=== PATIENT | female | born 1945 | race Caucasian/White ===

== ENCOUNTER 2018-04-04 17:08 | Inpatient (IN) ==
[2018-04-04] MEDS ORDERED: Naloxone 0.4 MG/ML INJ IVP PRN (19:53)
--- NOTE | 2018-04-04 21:03 | Internal Med History&Physical ---
<Giles Bradley - Last Filed: 04/04/18 23:05> Date of Encounter: 04/04/18 Time of Encounter: 20:30 Internal Medicine - H&P: HPI Chief complaint: Recurring Falls Admitted From: Hospital to Hospital Transfer Plans for Post Hospital Care: Home History of present illness: Ms. Doe is a 72 year old female past medical history hypertension, CHF, A. fib with pacer/defibrillator and currently on Plavix, bilateral "breast surgery ", bilateral tubal ligation, presents as transferred from [facility] for anemia requiring multiple transfusions, falls. Patient was getting up from her bed to go to the kitchen when she fell forward this morning. She reports that she has been feeling shaky for the last 2 days. Denied loss of consciousness immediately prior or after the fall. She denies lightheadedness, headaches, blurry vision. Replies that she is compliant with all her medications. Patient' s first fall was in 2009 and reports that she has fallen over 20 times since then. She does not use a walker at home and was recently started on Plavix due to cardiac stent. Reports that she has been easily bruised since starting on the Plavix. Denies chest pain, shortness of breath, coughing, sick contacts, f/ c/n/v/diarrhea. Denies hematuria, dysuria, melena, hematochezia. She reports that she received to blood transfusion units at [facility], previous last infusion was back in 2017. Denies noticing bleeding anywhere. Social history: Denies smoking, alcohol, illicit drug use. Patient lives by herself on her apartment and receives daily home health. Family history: Both parents with history of CAD Allergies: Codeine Medications: Statin, carvedilol, diazepam, flucoticasone, folic acid, furosemide , levothyroxine, lisinopril, plavix. Labs: WBC 10.4, RBC 1.89, hemoglobin 6.6, hematocrit 19.5, MCV 103.2, platelet 210, absolute neutrophils 8.8 Sodium 127, potassium 2.4, chloride 89, enzymatic CO2 24, BNP 56, glucose 120, creatinine 3.68, calcium 8.6, total protein 6.2, albumin 2.6 Total bilirubin 1.0, alkaline phosphatase 129, AST 58, ALT 22, GFR 14.72 Troponin<0.056 TSH 1.613, free T4 0.88 UA positive blood, positive leukocyte esterase, negative nitrites Occult blood negative Vital signs immediately prior to transfusion VSS, 2 units were given at [address] head without contrast: No bleed, positive mass effect, focal parenchymal lesion identified. Overall normal CT scan of the head Past Med Surg Social Fam HX - Past Medical History Medical history: CHF, hypertension Psychiatric history: anxiety, depression - Past Surgical History Surgical History: breast surgery, pacemaker/AICD Additional surgical history: breast cancer with breast surgery (2004) - Social History Smoking Status: Never smoker Smokeless Tobacco Status: No Alcohol use: rarely Drug use: none Internal Medicine - H&P: Meds 3 Allergy/AdvReac Type Severity Reaction Status Date / Time codeine Allergy Unknown Verified 04/04/18 23:35 All Systems PM: A 10-system review of systems was performed and is negative for pertinent findings except as documented above in the HPI. Review of systems: Patient reports constant falls when she gets up to walk. No walker at home. No aids. Patient started plavix a few months ago due to A. fib and received a pacemaker. - Constitutional Constitutional: no chills, no fever(s), no night sweats - EENT Eyes: no change in vision, no discharge, no pain, no photophobia Ears: no ear discharge, no ear pain, no tinnitus Nose, mouth and throat: no dysphagia, no nasal discharge, no neck pain, no sore throat - Cardiovascular Cardiovascular ROS IM: no chest pain, no diaphoresis, no dyspnea, no lightheadedness, no palpitations, no syncope - Respiratory Respiratory: no cough, no dyspnea, no wheezing, no excessive phlegm production - Gastrointestinal Gastrointestinal: no abdominal pain, no diarrhea, no hematemesis, no hematochezia, no melena, no nausea, no vomiting - Genitourinary Genitourinary: no change in urinary stream, no dysuria, no flank pain, no hematuria - Musculoskeletal Musculoskeletal ROS IM: no numbness, no tingling - Integumentary Integumentary IM: no rash, no unusual bruising - Neurological Neurological ROS: no confusion, no convulsions, no focal weakness, no numbness, no tingling, no tremor(s) - Hematologic/Lymphatic Hematologic/Lymphatic: no easy bruising - Constitutional Vitals: Temp Pulse Resp BP Pulse Ox 98.6 F 68 16 117/66 99 04/04/18 19:26 04/04/18 19:26 04/04/18 19:26 04/04/18 19:26 04/04/18 19:26 General appearance: Present: A&O X 3, pleasant, no acute distress, answers questions appropriately - Head Head exam: Present: atraumatic, normocephalic - Eye Eye exam: Present: EOMI, conjuntiva pink, sclera anicteric - Neck Neck exam general surgery: Present: supple, trachea midline. Absent: lymphadenopathy - Respiratory Respiratory exam: Present: CTAB. Absent: accessory muscle use, rales, rhonchi, wheezes - Cardiovascular Cardiovascular exam: Present: RRR, +S1, +S2. Absent: diastolic murmur, gallop, rubs, systolic murmur - GI/Abdominal GI/Abdominal exam: Present: normal bowel sounds, soft, no peritoneal signs. Absent: distended, tenderness - Extremities Exam Extremities exam: Present: warm, radial pulses palpable and symmetrical. Absent : calf tenderness, cyanotic, pedal edema - Neurological Exam Neurological exam: Present: oriented X3, no focal deficits. Absent: pronater drift, facial droop, speech deficit - Skin Skin exam: Present: dry, intact, mottled, petechiae Additional comments: Erythemosis noted on face, all extremities, trunk. - Assessment and plan (1) Anemia Current Visit: Yes Status: Acute Assessment and plan: Patient reports that she has chronic anemia. However, no records seen at [place]. Follow up with iron studies. Continue home folic acid. Patient received 2 units of RBC blood transfusions and has improvement of symptoms of fatigue. Trend h/h Q6H, if <7, start blood transfusion. Hold plavix Renal diet Fall precautions. Continuous heel stiffener. Qualifiers: Anemia type: unspecified type Qualified Code(s): D64.9 - Anemia, unspecified (2) Recurrent falls while walking Current Visit: Yes Status: Acute Assessment and plan: Fall precautions. Treat per above. (3) DVT prophylaxis Current Visit: Yes Status: Acute Assessment and plan: subQ hep (4) Hypertension Current Visit: Yes Status: Acute Assessment and plan: Reconcile home meds when available. Qualifiers: Hypertension type: essential hypertension Qualified Code(s): I10 - Essential (primary) hypertension (5) CHF (congestive heart failure) Current Visit: Yes Status: Acute Assessment and plan: Stable. Reconcile home medications when available. Qualifiers: Heart failure chronicity: chronic Qualified Code(s): I50.9 - Heart failure , unspecified (6) Elevated serum creatinine Current Visit: No Status: Acute Assessment and plan: Unknown baseline kidney function. Patient reports her baseline creatinine is 3.0. continue to monitor kidney function with AM labs. (7) History of chronic kidney disease Current Visit: No Status: Acute Assessment and plan: Unknown stage or baseline GFR. Continue to monitor kidney function with AM labs. Avoid nephrotoxins. (8) History of coronary artery stent placement Current Visit: Yes Status: Acute Assessment and plan: Hold Plavix for now in the setting of anemia, extensive echymosis. - Time Spent With Patient Total time spent is greater than 50% in coordination of care (as documented) at patient's floor/unit and/or counseling patient: Greater than 35 minutes <Christi Rainey - Last Filed: 04/05/18 00:59> Date of Encounter: 04/04/18 Time of Encounter: 22:30 Internal Medicine - H&P: HPI History of present illness: Ms. Doe is a 72 year old female All Systems PM: A 10-system review of systems was performed and is negative for pertinent findings except as documented above in the HPI. - Constitutional Vitals: Temp Pulse Resp BP Pulse Ox 98.4 F 69 16 106/68 99 04/04/18 23:59 04/04/18 23:59 04/04/18 23:59 04/04/18 23:59 04/04/18 23:59 Internal Med - H&P Results - Labs CBC & Chem 7: 04/04/18 23:23 Labs: Short CBC 04/04/18 Range/Units 23:23 Hgb 8.8 L (11.5-15.4) g/dL Hct 24.6 L (35.3-44.9) % - Attending Attestation examined this patient and my medical decision-making was reviewed with the Resident Physician, Giles Bradley. I agree with the documented findings, disposition and treatment plan as described with any changes as documented below. 72-year-old female patient with history of chronic anemia, chronic kidney disease presented to the ER at [facility] with complaints of generalized weakness and recurrent falls along with dizziness. She was noted to have multiple ecchymosis all over her body. She was found to have low hemoglobin levels on blood work and transferred here for evaluation. She denies any hematemesis or melena. She was recently placed on Plavix after having an AICD placed. Since then she has been bruising easily. No chest pain or palpitations. No nausea or vomiting. She received 2 units of packed red blood cell transfusion prior to coming year and now she feels better. On examination, patient has multiple ecchymosis all over her body and on the left side of her face. Heart sounds are normal. Breath sounds are normal. Abdomen is soft and nontender. No pedal edema. Hemoglobin 6.6. CT of the head was negative for any acute bleed. Creatinine was 3.8 Acute on chronic anemia: Likely related to Plavix use and excessive bruising. Stool was negative for occult blood. Patient received 2 units PRBC transfusion prior to coming here. We will monitor H&H. Transfuse if blood counts remain less than 7. If hemoglobin levels dropped further, consider GI consult for upper GI endoscopy and colonoscopy. At this time no evidence of patient having active GI bleed. Hold Plavix. Acute kidney injury: Likely related to hypoperfusion from acute anemia. Will treat with IV fluids. Monitor vital signs. Monitor input and output. Recurrent falls: While this is likely due to lightheadedness related to GI bleed , patient does live alone and is at risk for serious injury from falls. Will consult physical therapy for evaluation. Patient may need placement. - Assessment and plan (1) Anemia Current Visit: Yes Status: Acute Qualifiers: Anemia type: unspecified type Qualified Code(s): D64.9 - Anemia, unspecified (2) Recurrent falls while walking Current Visit: Yes Status: Acute (3) DVT prophylaxis Current Visit: Yes Status: Acute (4) Hypertension Current Visit: Yes Status: Acute Qualifiers: Hypertension type: essential hypertension Qualified Code(s): I10 - Essential (primary) hypertension (5) CHF (congestive heart failure) Current Visit: Yes Status: Acute Qualifiers: Heart failure chronicity: chronic Qualified Code(s): I50.9 - Heart failure , unspecified (6) Elevated serum creatinine Current Visit: No Status: Acute (7) History of chronic kidney disease Current Visit: No Status: Acute (8) History of coronary artery stent placement Current Visit: Yes Status: Acute - Time Spent With Patient Total time spent is greater than 50% in coordination of care (as documented) at patient's floor/unit and/or counseling patient:
[2018-04-04 23:37] LABS: Hematocrit 24.6 % (35.3-44.9); Hemoglobin 8.8 g/dL (11.5-15.4)
--- NOTE | 2018-04-04 23:45 | Event Note ---
Date of Encounter: 04/04/18 Time of Encounter: 22:30 I examined this patient and my medical decision-making was reviewed with the Resident Physician, Giles Bradley. I agree with the documented findings, disposition and treatment plan as described with any changes as documented below. 72-year-old female patient with history of chronic anemia, chronic kidney disease presented to the ER at [facility] with complaints of generalized weakness and recurrent falls along with dizziness. She was noted to have multiple ecchymosis all over her body. She was found to have low hemoglobin levels on blood work and transferred here for evaluation. She denies any hematemesis or melena. She was recently placed on Plavix after having an AICD placed. Since then she has been bruising easily. No chest pain or palpitations. No nausea or vomiting. She received 2 units of packed red blood cell transfusion prior to coming year and now she feels better. On examination, patient has multiple ecchymosis all over her body and on the left side of her face. Heart sounds are normal. Breath sounds are normal. Abdomen is soft and nontender. No pedal edema. Hemoglobin 6.6. CT of the head was negative for any acute bleed. Creatinine was 3.8 Acute on chronic anemia: Likely related to Plavix use and excessive bruising. Stool was negative for occult blood. Patient received 2 units PRBC transfusion prior to coming here. We will monitor H&H. Transfuse if blood counts remain less than 7. If hemoglobin levels dropped further, consider GI consult for upper GI endoscopy and colonoscopy. At this time no evidence of patient having active GI bleed. Hold Plavix. Acute kidney injury: Likely related to hypoperfusion from acute anemia. Will treat with IV fluids. Monitor vital signs. Monitor input and output. Recurrent falls: While this is likely due to lightheadedness related to GI bleed , patient does live alone and is at risk for serious injury from falls. Will consult physical therapy for evaluation. Patient may need placement.
[2018-04-05] MEDS: 0.9 % Sodium Chloride 1,000 ML IVC SCH ×2 (01:11→13:51)
[2018-04-05] MEDS: *HR* Heparin 5,000 UNIT/ML VIAL SQ SCH ×2 (04:49→17:18)
[2018-04-05 05:07] LABS: Basophils % 0.4 %; Eosinophils # 0.1 K/mcL (0.0-0.6); Eosinophils % 1.6 %; Hematocrit 23.8 % (35.3-44.9); Hemoglobin 8.2 g/dL (11.5-15.4); Immature Granulocytes % 0.6 % (0-4); Mean Corpuscular HGB Conc 34.5 g/dL (31.6-35.5); Mean Corpuscular Hemoglobin 32.8 pg (28.0-33.3); Mean Corpuscular Volume 95.2 fL (83.0-100.0); Mean Platelet Volume 10.1 fL (9.4-12.4); Monocytes # 0.5 K/mcL (0.0-1.3); Monocytes % 7.1 %; Neutrophils # 5.1 K/mcL (1.6-8.9); Platelet Count 167 K/mcL (140-400); Red Cell Distribution Width 17.3 % (11.5-14.5); Segmented Neutrophils % 75.3 %
[2018-04-05 05:15] LABS: Prothrombin Time 10.3 Seconds (9.4-12.1)
[2018-04-05 05:17] LABS: Activated Partial Thrombo Time 26.7 Seconds (26.0-36.0)
[2018-04-05 05:32] LABS: Calcium 8.4 mg/dL (8.6-10.3); Potassium 3.2 mEq/L (3.5-5.1)
[2018-04-05 05:33] LABS: % Iron Saturation 59 % (15-50); Iron 159 mcg/dL (50-170); Transferrin 191 mg/dL (203-362)
--- NOTE | 2018-04-05 13:28 | Internal Med Progress Note ---
Date of Encounter: 04/05/18 Time of Encounter: 15:12 - Assessment and plan (1) Anemia Current Visit: Yes Status: Acute Assessment and plan: Acute on chornic anemia Hb said to be 6.6 at outside facility Received 2 units RBCS Hb here 8, stable CT of the head was negative for any acute bleed. Stool was negative for occult blood Continue to monitor Hb Qualifiers: Anemia type: unspecified type Qualified Code(s): D64.9 - Anemia, unspecified (2) Recurrent falls while walking Current Visit: Yes Status: Acute Assessment and plan: Likely due to weakness from anemia PTOT eval (3) DVT prophylaxis Current Visit: Yes Status: Acute Assessment and plan: subQ hep (4) Hypertension Current Visit: Yes Status: Chronic Assessment and plan: Resume home meds Qualifiers: Hypertension type: essential hypertension Qualified Code(s): I10 - Essential (primary) hypertension (5) CHF (congestive heart failure) Current Visit: Yes Status: Chronic Assessment and plan: Stable. continue BB, Hold Plavix, Hold lisinopril and lasix Qualifiers: Heart failure type: unspecified Heart failure chronicity: chronic Qualified Code(s): I50.9 - Heart failure, unspecified (6) Elevated serum creatinine Current Visit: Yes Status: Acute (7) History of chronic kidney disease Current Visit: No Status: Acute Assessment and plan: Unknown stage or baseline GFR. Continue to monitor kidney function with AM labs. Avoid nephrotoxins. (8) History of coronary artery stent placement Current Visit: Yes Status: Chronic Assessment and plan: Anemia has resolved patient is unsure of the duration of stent She has no GIB FOBT negative Resume plavix (9) Acute kidney failure Current Visit: Yes Status: Acute Assessment and plan: Likely related to hypoperfusion from acute anemia. Continue IV fluids. Monitor vital signs. Monitor input and output. Obtain renal USS. UA unremarkable Qualifiers: Acute renal failure type: unspecified Qualified Code(s): N17.9 - Acute kidney failure, unspecified (10) Hypokalemia Current Visit: Yes Status: Acute Assessment and plan: Replace K, continue monitor - Time Spent With Patient Total time spent is greater than 50% in coordination of care (as documented) at patient's floor/unit and/or counseling patient: - Subjective Interval history: Seen and examined at bedside with niece REports she feels better Awaiting PTOT eval She was admitted for acute on chronic anemia, possibly due to extensive bruising while on Plavix, and JUAN CARLOS She has also had recurrent falls She has a PMH of hypertension, CHF, A. fib with pacer/defibrillator - Constitutional Vitals: Temp Pulse Resp BP Pulse Ox 98.3 F 75 17 107/69 99 04/05/18 12:01 04/05/18 12:01 04/05/18 12:01 04/05/18 12:01 04/05/18 12:01 General appearance: Present: A&O X 3, pleasant, no acute distress, answers questions appropriately - Head Head exam: Present: atraumatic, normocephalic - Eye Eye exam: Present: PERRL, conjuntiva pink, sclera anicteric Pupils: Present: PERRL - Neck Neck exam general surgery: Present: supple, trachea midline. Absent: lymphadenopathy - Respiratory Respiratory exam: Present: CTAB. Absent: accessory muscle use, rales, rhonchi, wheezes - Cardiovascular Cardiovascular exam: Present: RRR, +S1, +S2. Absent: diastolic murmur, gallop, rubs, systolic murmur - GI/Abdominal GI/Abdominal exam: Present: normal bowel sounds, soft, no peritoneal signs. Absent: distended, tenderness - Extremities Exam Extremities exam: Present: warm, radial pulses palpable and symmetrical. Absent : calf tenderness, cyanotic, pedal edema - Neurological Exam Neurological exam: Present: alert, CN II-XII intact, oriented X3, no focal deficits. Absent: pronater drift, facial droop, speech deficit - Skin Additional comments: Extensive bruising all over the body Internal Medicine: Result - Labs CBC & Chem 7: 04/05/18 04:31 04/05/18 04:31 Labs: Short CBC 04/04/18 04/05/18 Range/Units 23:23 04:31 WBC 6.8 (4.3-11.1) K/mcL Hgb 8.8 L 8.2 L (11.5-15.4) g/dL Hct 24.6 L 23.8 L (35.3-44.9) % Plt Count 167 (140-400) K/mcL Neutrophils # 5.1 (1.6-8.9) K/mcL BMP 04/05/18 04:31 Sodium 132 L Potassium 3.2 L Chloride 98 Carbon Dioxide 23 BUN 52 H Creatinine 2.40 H Glucose 80 Calcium 8.4 L - ABG Interpretation ABG results: PT/INR, D-dimer PT 10.3 Seconds (9.4-12.1) 04/05/18 04:31 Consult Discharge Plan - Plan Referrals: Ade Krueger [Primary Care Provider] -
[2018-04-05] MEDS ORDERED: traMADol 50 MG TABLET PO PRN (15:19)
[2018-04-05 16:01] LABS: Basophils % 0.2 %; Eosinophils # 0.1 K/mcL (0.0-0.6); Eosinophils % 1.4 %; Hematocrit 22.7 % (35.3-44.9); Hemoglobin 7.7 g/dL (11.5-15.4); Immature Granulocytes % 0.5 % (0-4); Lymphocytes # 0.8 K/mcL (0.6-4.6); Mean Corpuscular HGB Conc 33.9 g/dL (31.6-35.5); Mean Corpuscular Hemoglobin 32.8 pg (28.0-33.3); Mean Corpuscular Volume 96.6 fL (83.0-100.0); Mean Platelet Volume 9.5 fL (9.4-12.4); Monocytes # 0.3 K/mcL (0.0-1.3); Monocytes % 5.7 %; Neutrophils # 4.5 K/mcL (1.6-8.9); Platelet Count 162 K/mcL (140-400); Red Blood Count 2.35 M/mcL (3.82-4.97); Red Cell Distribution Width 18.2 % (11.5-14.5); Segmented Neutrophils % 78.2 %
[2018-04-05 16:23] LABS: Calcium 8.3 mg/dL (8.6-10.3); Potassium 3.2 mEq/L (3.5-5.1)
[2018-04-06] MEDS: 0.9 % Sodium Chloride 1,000 ML IVC SCH (05:14)
[2018-04-06] MEDS: *HR* Heparin 5,000 UNIT/ML VIAL SQ SCH ×2 (05:15→17:00)
--- NOTE | 2018-04-06 10:01 | Internal Med Progress Note ---
Date of Encounter: 04/06/18 Time of Encounter: 09:59 - Assessment and plan (1) Anemia Current Visit: Yes Status: Acute Assessment and plan: Acute on chornic anemia Hb said to be 6.6 at outside facility Received 2 units RBCS Hb here 8 on arrival 7.7 6/2, no labs drawn today, obtain STAT labs CT of the head was negative for any acute bleed. Stool was negative for occult blood Continue to monitor Hb Qualifiers: Anemia type: unspecified type Qualified Code(s): D64.9 - Anemia, unspecified (2) Recurrent falls while walking Current Visit: Yes Status: Acute Assessment and plan: Likely due to weakness from anemia PTOT eval (3) DVT prophylaxis Current Visit: Yes Status: Acute Assessment and plan: subQ hep (4) Hypertension Current Visit: Yes Status: Chronic Assessment and plan: Continue home meds Qualifiers: Hypertension type: essential hypertension Qualified Code(s): I10 - Essential (primary) hypertension (5) CHF (congestive heart failure) Current Visit: Yes Status: Chronic Assessment and plan: Stable. continue BB, Hold Plavix, Hold lisinopril and lasix till renal function improved Qualifiers: Heart failure type: unspecified Heart failure chronicity: chronic Qualified Code(s): I50.9 - Heart failure, unspecified (6) Elevated serum creatinine Current Visit: Yes Status: Acute (7) History of chronic kidney disease Current Visit: Yes Status: Acute Assessment and plan: Unknown stage or baseline GFR. Continue to monitor kidney function with AM labs. Avoid nephrotoxins. (8) History of coronary artery stent placement Current Visit: Yes Status: Chronic Assessment and plan: Anemia has resolved patient is unsure of the duration of stent She has no GIB FOBT negative Continue plavix (9) Acute kidney failure Current Visit: Yes Status: Acute Assessment and plan: Likely related to hypoperfusion from acute anemia. Discontinue IVF Obtain labs for today Qualifiers: Acute renal failure type: unspecified Qualified Code(s): N17.9 - Acute kidney failure, unspecified (10) Hypokalemia Current Visit: Yes Status: Acute Assessment and plan: Replace K, continue monitor - Time Spent With Patient Total time spent is greater than 50% in coordination of care (as documented) at patient's floor/unit and/or counseling patient: - Subjective Interval history: Seen and examined at bedside with niece Reports she feels better Awaiting PTOT eval She was admitted for acute on chronic anemia, possibly due to extensive bruising while on Plavix, and JUAN CARLOS She has also had recurrent falls She has a PMH of hypertension, CHF, A. fib with pacer/defibrillator She is not sure when her stent was placed, we have resumed plavix 04/05, we will continue to monitor K is low today, will replace, stop IVF - Constitutional Vitals: Temp Pulse Resp BP Pulse Ox 98.4 F 76 18 122/78 97 04/06/18 06:56 04/06/18 06:56 04/06/18 06:56 04/06/18 06:56 04/06/18 06:56 General appearance: Present: A&O X 3, pleasant, no acute distress, answers questions appropriately - Head Head exam: Present: atraumatic, normocephalic - Eye Eye exam: Present: PERRL, conjuntiva pink, sclera anicteric Pupils: Present: PERRL - Neck Neck exam general surgery: Present: supple, trachea midline. Absent: lymphadenopathy - Respiratory Respiratory exam: Present: CTAB. Absent: accessory muscle use, rales, rhonchi, wheezes - Cardiovascular Cardiovascular exam: Present: RRR, +S1, +S2. Absent: diastolic murmur, gallop, rubs, systolic murmur - GI/Abdominal GI/Abdominal exam: Present: normal bowel sounds, soft, no peritoneal signs. Absent: distended, tenderness - Extremities Exam Extremities exam: Present: warm, radial pulses palpable and symmetrical. Absent : calf tenderness, cyanotic, pedal edema - Neurological Exam Neurological exam: Present: alert, CN II-XII intact, oriented X3, no focal deficits. Absent: pronater drift, facial droop, speech deficit - Skin Skin exam: Present: dry, intact Additional comments: extensive bruising on all extremities Internal Medicine: Result - Labs CBC & Chem 7: 04/05/18 15:41 04/05/18 15:41 Labs: Short CBC 04/05/18 Range/Units 15:41 WBC 5.8 (4.3-11.1) K/mcL Hgb 7.7 L (11.5-15.4) g/dL Hct 22.7 L (35.3-44.9) % Plt Count 162 (140-400) K/mcL Neutrophils # 4.5 (1.6-8.9) K/mcL BMP 04/05/18 15:41 Sodium 133 L Potassium 3.2 L Chloride 101 Carbon Dioxide 24 BUN 43 H Creatinine 1.95 H Glucose 116 H Calcium 8.3 L - ABG Interpretation ABG results: PT/INR, D-dimer PT 10.3 Seconds (9.4-12.1) 04/05/18 04:31 Consult Discharge Plan - Plan Referrals: Ade Krueger [Primary Care Provider] -
[2018-04-06] MEDS: diazePAM 10 MG TABLET PO SCH (10:06)
[2018-04-06] MEDS: Folic Acid 1 MG TABLET PO SCH (10:06)
[2018-04-06] MEDS: Fluticasone Propionate Nasal 50 MCG/SPRAY BOTTLE NS SCH (10:07)
[2018-04-06 10:56] LABS: Basophils % 0.2 %; Eosinophils # 0.1 K/mcL (0.0-0.6); Hematocrit 23.2 % (35.3-44.9); Hemoglobin 7.9 g/dL (11.5-15.4); Immature Granulocytes % 0.6 % (0-4); Lymphocytes # 0.7 K/mcL (0.6-4.6); Lymphocytes % 13.9 %; Mean Corpuscular HGB Conc 34.1 g/dL (31.6-35.5); Mean Corpuscular Hemoglobin 34.5 pg (28.0-33.3); Mean Corpuscular Volume 101.3 fL (83.0-100.0); Mean Platelet Volume 9.8 fL (9.4-12.4); Monocytes # 0.4 K/mcL (0.0-1.3); Neutrophils # 3.9 K/mcL (1.6-8.9); Platelet Count 173 K/mcL (140-400); Red Blood Count 2.29 M/mcL (3.82-4.97); Red Cell Distribution Width 18.2 % (11.5-14.5); Segmented Neutrophils % 76.3 %
[2018-04-06 11:08] LABS: Calcium 8.4 mg/dL (8.6-10.3); Potassium 3.7 mEq/L (3.5-5.1)
[2018-04-06] MEDS: Acetaminophen 325 MG TABLET PO PRN (11:57)
[2018-04-07] MEDS: Acetaminophen 325 MG TABLET PO PRN ×3 (00:54→22:57)
[2018-04-07] MEDS: *HR* Heparin 5,000 UNIT/ML VIAL SQ SCH ×2 (05:00→16:45)
[2018-04-07 06:09] LABS: Basophils % 0.4 %; Eosinophils # 0.1 K/mcL (0.0-0.6); Eosinophils % 2.4 %; Hematocrit 21.2 % (35.3-44.9); Immature Granulocytes % 1.1 % (0-4); Lymphocytes # 1.1 K/mcL (0.6-4.6); Lymphocytes % 24.2 %; Mean Corpuscular Hemoglobin 32.7 pg (28.0-33.3); Mean Corpuscular Volume 99.1 fL (83.0-100.0); Mean Platelet Volume 9.3 fL (9.4-12.4); Monocytes # 0.4 K/mcL (0.0-1.3); Monocytes % 8.8 %; Platelet Count 176 K/mcL (140-400); Red Blood Count 2.14 M/mcL (3.82-4.97); Red Cell Distribution Width 18.1 % (11.5-14.5); Segmented Neutrophils % 63.1 %
[2018-04-07 06:24] LABS: BUN/Creatinine Ratio 19 (6-26); Blood Urea Nitrogen 19 mg/dL (8-23); Calcium 8.6 mg/dL (8.6-10.3); Carbon Dioxide 24 mEq/L (23-29); Chloride 109 mEq/L (98-107); Glucose 108 mg/dL (70-105); Osmolality,Calculated 289 (280-300); Potassium 3.8 mEq/L (3.5-5.1); Sodium 138 mEq/L (136-145); eGFR For African Americans > 60 (> 60); eGFR For Non-African Americans 55 (> 60)
[2018-04-07] MEDS: Folic Acid 1 MG TABLET PO SCH (08:35)
[2018-04-07] MEDS: diazePAM 10 MG TABLET PO SCH (08:35)
[2018-04-07] MEDS: Fluticasone Propionate Nasal 50 MCG/SPRAY BOTTLE NS SCH (08:36)
--- NOTE | 2018-04-07 10:28 | Cardiology Consult Note ---
Date of Encounter: 04/07/18 Time of Encounter: 10:24 Assessment and Plan (1) CAD (coronary artery disease) Current Visit: Yes Status: Chronic Hx of PCI. Pt reports one stent placed at [facility], but unsure if it was in the past year or not. Records requested. Stable CAD--denies chest pain or dyspnea. If PCI was >1 year ago, would be okay to stop Plavix given her anemia requiring multiple transfusions. HGB 7.0 today. Ecchymosis noted all over. PLT WNL. Will make final recommendations once records are obtained and reviewed. Qualifiers: Coronary Disease-Associated Artery/Lesion type: [place] artery [place] vs. transplanted heart: [place] heart Associated angina: without angina Qualified Code(s): I25.10 - Atherosclerotic heart disease of [place] coronary artery without angina pectoris (2) Cardiomyopathy Current Visit: Yes Status: Chronic Suspect ICMP given PCI then ICD insertion in the months following. Pt appears euvolemic on exam. Unclear what EF is, all prior testing is from [facility]. Records requested. Continue BB. Resume ACEi once renal function/BP allow. Qualifiers: Cardiomyopathy type: unspecified Qualified Code(s): I42.9 - Cardiomyopathy , unspecified (3) Anemia Current Visit: Yes Status: Acute Management per primary team. Unclear cause. Hemoccult negative. HGB 7.0 today, has required multiple transfusions. Will make final Plavix recs once records are obtained. Qualifiers: Anemia type: unspecified type Qualified Code(s): D64.9 - Anemia, unspecified Discussion w patient/family: The assessment and plan as outlined above was discussed with the patient and/or family members who expressed understanding and agreement. All questions were answered. Thank you for involving us in the care of your patient. Please call with any questions. I will discuss all the above with Dr. Cavazos and make changes as necessary. History of Present Illness Consult date: 04/07/18 Requesting physician: Blas Hubbard Consult reason: Plavix recs Chief complaint: fall, bruising History of present illness: Ms. Deo is a 72 year old female with PMH of CHF, presumed ICMP s/p ICD insertion, CAD s/p PCI, that presented in transfer from [facility] for anemia that required multiple transfusions, falls. Patient reports she was getting up from her bed to go to the kitchen when she fell forward, reported she has been feeling shaky for 2 days prior to admission. Denies dizziness, syncope or lightheadedness. Denies chest pain or dyspnea. Cardiology was consulted for Plavix recommendations given her low HGB necessitating blood transfusions. HGB 7.0 today. PLT WNL. She is on Plavix due to PCI and notices easily bruising since starting it. She is unsure when her stent was placed. States it was 1 stent and that she had ICD insertion the months following. She does have her ICD card, inserted 09/2017. Past Med Surg Social Fam HX - Past Medical History Medical history: cardiomyopathy, CHF, coronary artery disease, hypertension Psychiatric history: anxiety, depression - Past Surgical History Surgical History: breast surgery, pacemaker/AICD Additional surgical history: breast cancer with breast surgery (2004) - Social History Smoking Status: Never smoker Smokeless Tobacco Status: No Alcohol use: rarely Drug use: none Medications and Allergies Carvedilol [Coreg] 6.25 mg PO BID 04/05/18 [History] Ergocalciferol (VITAMIN D2) [Vitamin D2] 50,000 unit PO QWEEK 04/05/18 [History] Fluticasone Propionate Nasal [Flonase] 1 - 2 spr NS DAILY 04/05/18 [History] Folic Acid 1 mg PO DAILY 04/05/18 [History] Furosemide [Lasix] 40 mg PO DAILY 04/05/18 [History] Lisinopril [Zestril] 10 mg PO DAILY 04/05/18 [History] Ondansetron [Zofran] 8 mg PO Q8HR PRN 04/05/18 [History] Polyethylene Glycol 3350 [MiraLAX] 17 gm PO DAILY 04/05/18 [History] Sertraline [Zoloft] 100 mg PO DAILY 04/05/18 [History] Tramadol HCl [Ultram] 50 mg PO DAILY PRN 04/05/18 [History] diazePAM [Valium] 10 mg PO DAILY 04/05/18 [History] 3 Allergy/AdvReac Type Severity Reaction Status Date / Time codeine Allergy Unknown Verified 04/05/18 10:12 All Systems Review: The remainder of the systems were reviewed and are negative - Constitutional Constitutional: frequent falls, weakness - Hematological/Lymphatic Hematologic/Lymphatic: easy bruising Physical Examination Vital Signs, Last 4 Hours Temp Pulse Resp BP Pulse Ox 04/07/18 07:56 98.3 F 63 16 116/65 98 Vital Signs Temp Pulse Resp BP Pulse Ox 04/07/18 07:56 98.3 F 63 16 116/65 98 04/06/18 23:29 98.0 F 68 18 122/73 98 04/06/18 22:53 97 04/06/18 20:27 98.2 F 68 18 123/75 97 04/06/18 16:58 98.7 F 73 18 129/76 100 04/06/18 12:04 97.8 F 66 18 117/69 100 Intake and Output 04/06/18 04/07/18 04/07/18 23:59 07:59 15:59 Intake Total 220 / 220 240 / 240 Output Total 500 / 500 200 / 200 Balance -280 / -280 -200 / -200 240 / 240 Intake: Oral 220 / 220 240 / 240 Output: Urine 500 / 500 200 / 200 Other: Meal Lunch Breakfast Percent of Meal Consumed 70% 75% Stool Size Moderate Stool Consistency soft Stool Characteristics Normal for Patient Stool Color Brown Yellow General: Conversant, No Apparent Distress HEENT: Normocephaly, Mucus Membranes Moist, Other (bruising noted) Neck: No JVD, Normal carotid pulses Cardiac: Reg Rate and Rhythm, Normal S1 and S2, No Murmur Lungs: Normal Breath Sounds, No Wheeze, Rales, Rhonchi Neuro: Alert and responsive, No focal deficits noted Abdomen: Soft, Non-Tender Skin: No rashes noted on visualized skin Musculoskeletal: No Chest Wall Tenderness Extremities: No Clubbing, No Cyanosis, No Edema, Normal Pulses Results 04/07/18 05:43 04/07/18 05:43 Lab Results 04/06/18 04/06/18 04/07/18 10:25 10:25 05:43 WBC 5.1 4.7 Hgb 7.9 L 7.0 L Hct 23.2 L 21.2 L Plt Count 173 176 Sodium 137 Potassium 3.7 Chloride 108 H Carbon Dioxide 23 BUN 27 H Creatinine 1.24 H Glucose 149 H Calcium 8.4 L 04/07/18 05:43 WBC Hgb Hct Plt Count Sodium 138 Potassium 3.8 Chloride 109 H Carbon Dioxide 24 BUN 19 Creatinine 0.99 Glucose 108 H Calcium 8.6 Short CBC 04/07/18 04/06/18 Range/Units 05:43 10:25 WBC 4.7 5.1 (4.3-11.1) K/mcL Hgb 7.0 L 7.9 L (11.5-15.4) g/dL Hct 21.2 L 23.2 L (35.3-44.9) % Plt Count 176 173 (140-400) K/mcL Neutrophils # 3.0 3.9 (1.6-8.9) K/mcL BMP 04/07/18 04/06/18 Range/Units 05:43 10:25 Sodium 138 137 (136-145) mEq/L Potassium 3.8 3.7 (3.5-5.1) mEq/L Chloride 109 H 108 H (98-107) mEq/L Carbon Dioxide 24 23 (23-29) mEq/L BUN 19 27 H (8-23) mg/dL Creatinine 0.99 1.24 H (0.60-1.20) mg/dL Glucose 108 H 149 H (70-105) mg/dL Calcium 8.6 8.4 L (8.6-10.3) mg/dL Active Medications Acetaminophen (Tylenol) 650 mg PO Q6HR PRN PRN Reason: Mild Pain/Fever Stop: 10/04/18 23:50 Last Admin: 04/07/18 08:35 Dose: 650 mg Carvedilol (Coreg) 6.25 mg PO BIDWM [facility] PRN Reason: Protocol Stop: 10/05/18 17:01 Last Admin: 04/07/18 08:35 Dose: 6.25 mg Clopidogrel Bisulfate (Plavix) 75 mg PO DAILY [facility] Stop: 10/06/18 09:01 Last Admin: 04/07/18 08:35 Dose: 75 mg Diazepam (Valium) 10 mg PO DAILY [facility] Stop: 10/06/18 09:01 Last Admin: 04/07/18 08:35 Dose: 10 mg Fluticasone Propionate (Flonase) 50 mcg NS DAILY [facility] PRN Reason: Protocol Stop: 10/06/18 09:01 Last Admin: 04/07/18 08:36 Dose: 50 mcg Folic Acid (Folic Acid) 1 mg PO DAILY [facility] Stop: 10/06/18 09:01 Last Admin: 04/07/18 08:35 Dose: 1 mg Heparin Sodium (Porcine) (Heparin) 5,000 unit SQ Q12HCO [facility] Stop: 10/05/18 06:01 Last Admin: 04/07/18 05:00 Dose: 5,000 unit Naloxone HCl (Narcan) 0.4 mg IVP Q2MIN PRN PRN Reason: SEE COMMENTS Stop: 10/04/18 19:54 Polyethylene Glycol (Miralax) 17 gm PO DAILY [facility] Stop: 10/06/18 09:01 Last Admin: 04/07/18 08:35 Dose: Not Given Sertraline HCl (Zoloft) 100 mg PO DAILY [facility] Stop: 10/06/18 09:01 Last Admin: 04/07/18 08:35 Dose: 100 mg Tramadol HCl (Ultram) 50 mg PO DAILY PRN PRN Reason: Moderate Pain Stop: 10/05/18 15:20 Last Admin: 04/06/18 22:31 Dose: 50 mg - EKG Interpretation EKG results cardiology: other (12 hr tele AVG HR 69, SR) Consult Discharge Plan - Plan Referrals: Ade Krueger [Primary Care Provider] -
--- NOTE | 2018-04-07 12:59 | Internal Med Progress Note ---
Date of Encounter: 04/07/18 Time of Encounter: 12:59 - Assessment and plan (1) Anemia Current Visit: Yes Status: Acute Assessment and plan: Acute on chornic anemia Hb said to be 6.6 at outside facility Received 2 units RBCS Hb here 8 on arrival 7.7 6/, CT of the head was negative for any acute bleed. Stool was negative for occult blood Hb this a.m 7 Transfuse one unit RBCS Discontinue Plavix, cardiology consulted, awaiting records, but state can discontinue Plavix if stent was placed >1 yr ago Continue to monitor Hb Qualifiers: Anemia type: unspecified type Qualified Code(s): D64.9 - Anemia, unspecified (2) Recurrent falls while walking Current Visit: Yes Status: Acute Assessment and plan: Likely due to weakness from anemia PTOT eval noted, no therapy needed (3) DVT prophylaxis Current Visit: Yes Status: Acute Assessment and plan: subQ hep (4) Hypertension Current Visit: Yes Status: Chronic Assessment and plan: Continue home meds Qualifiers: Hypertension type: essential hypertension Qualified Code(s): I10 - Essential (primary) hypertension (5) CHF (congestive heart failure) Current Visit: Yes Status: Chronic Assessment and plan: Stable. continue BB, Hold Plavix, Resume lasix and lisinopril at low dose Qualifiers: Heart failure type: unspecified Heart failure chronicity: chronic Qualified Code(s): I50.9 - Heart failure, unspecified (6) History of chronic kidney disease Current Visit: Yes Status: Acute Assessment and plan: Unknown stage or baseline GFR. Continue to monitor kidney function with AM labs. Avoid nephrotoxins. (7) History of coronary artery stent placement Current Visit: Yes Status: Chronic Assessment and plan: Anemia has resolved patient is unsure of the duration of stent cardio consulted She has no GIB FOBT negative DisContinue plavix (8) Acute kidney failure Current Visit: Yes Status: Acute Assessment and plan: Likely related to hypoperfusion from acute anemia. Acute on chronic kidney disease Renal function is back to baseline Qualifiers: Acute renal failure type: unspecified Qualified Code(s): N17.9 - Acute kidney failure, unspecified (9) Hypokalemia Current Visit: Yes Status: Acute Assessment and plan: Resolved - Time Spent With Patient Total time spent is greater than 50% in coordination of care (as documented) at patient's floor/unit and/or counseling patient: - Subjective Interval history: Seen and examined at bedside with niece Reports she feels better She was admitted for acute on chronic anemia, possibly due to extensive bruising while on Plavix, and JUAN CARLOS She has also had recurrent falls She has a PMH of hypertension, CHF, A. fib with pacer/defibrillator She is not sure when her stent was placed, we resumed plavix 04/05, we will continue to monitor Renal function is back to baseline this a.m However, HB dropped to 7 She has no GI source of bleeding, stool is brown, FOBT negative, no hematemesis Cardiology consulted today due to presence of stent and anemia with bruising We will give 1 unit RBCS and hold Plavix - Constitutional Vitals: Temp Pulse Resp BP Pulse Ox 98.2 F 60 16 115/69 99 04/07/18 11:48 04/07/18 11:48 04/07/18 11:48 04/07/18 11:48 04/07/18 11:48 General appearance: Present: A&O X 3, pleasant, no acute distress, answers questions appropriately - Head Head exam: Present: atraumatic, normocephalic Additional comments: Facial brusing, - Eye Eye exam: Present: PERRL, conjuntiva pink, sclera anicteric Pupils: Present: PERRL - Neck Neck exam general surgery: Present: supple, trachea midline. Absent: lymphadenopathy - Respiratory Respiratory exam: Present: CTAB. Absent: accessory muscle use, rales, rhonchi, wheezes - Cardiovascular Cardiovascular exam: Present: RRR, +S1, +S2. Absent: diastolic murmur, gallop, rubs, systolic murmur - GI/Abdominal GI/Abdominal exam: Present: normal bowel sounds, soft, no peritoneal signs. Absent: distended, tenderness - Extremities Exam Extremities exam: Present: warm, radial pulses palpable and symmetrical. Absent : calf tenderness, cyanotic, pedal edema Additional comments: brusing diffusely - Neurological Exam Neurological exam: Present: alert, CN II-XII intact, oriented X3, no focal deficits. Absent: pronater drift, facial droop, speech deficit - Skin Skin exam: Present: dry Additional comments: diffuse bruising Internal Medicine: Result - Labs CBC & Chem 7: 04/07/18 05:43 04/07/18 05:43 Labs: Short CBC 04/07/18 Range/Units 05:43 WBC 4.7 (4.3-11.1) K/mcL Hgb 7.0 L (11.5-15.4) g/dL Hct 21.2 L (35.3-44.9) % Plt Count 176 (140-400) K/mcL Neutrophils # 3.0 (1.6-8.9) K/mcL BMP 04/07/18 05:43 Sodium 138 Potassium 3.8 Chloride 109 H Carbon Dioxide 24 BUN 19 Creatinine 0.99 Glucose 108 H Calcium 8.6 - ABG Interpretation ABG results: PT/INR, D-dimer PT 10.3 Seconds (9.4-12.1) 04/05/18 04:31 Consult Discharge Plan - Plan Referrals: Ade Krueger [Primary Care Provider] -
[2018-04-07] MEDS ORDERED: Furosemide 20 MG TABLET PO PRN (14:21)
--- NOTE | 2018-04-07 14:59 | Event Note ---
Date of Encounter: 04/07/18 Time of Encounter: 14:54 - Cardiology Event Note Further reviewed. Pt reports A-Fib in November 2017 at [place]. Device interrogated --episode of A-Fib 02/24/18. Currently SR. On further review with pt, has been on DAPT--81mg ASA and Plavix 75mg daily. Records obtained--synergy HAWK placed 06/03/17 to distal LAD. EF 30-35% on TTE 2017 at [place]. 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 Since her stent was synergy and she has been on DAPT >6 months, there is low risk of stent thrombosis from stopping Plavix. Given HGB 7.0 and requiring PRBCs , recommend stopping Plavix. Continue 81mg ASA only. [id number] (Age, Female, HTN, CAD, CHF). High CVA risk, but given anemia requiring PRBCs, not a good candidate for AC. Pt aware of increased CVA risk. Recommend 81mg ASA only. Cardiology signing off. Reconsult PRN. 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
[2018-04-07] MEDS ORDERED: 0.9 % Sodium Chloride 250 ML ONE (15:31)
[2018-04-08] MEDS: *HR* Heparin 5,000 UNIT/ML VIAL SQ SCH (05:03)
[2018-04-08] MEDS: diazePAM 5 MG TABLET PO SCH (07:43)
[2018-04-08] MEDS: Fluticasone Propionate Nasal 50 MCG/SPRAY BOTTLE NS SCH (07:44)
[2018-04-08] MEDS: Acetaminophen 325 MG TABLET PO PRN (07:44)
[2018-04-08] MEDS: Folic Acid 1 MG TABLET PO SCH (07:44)
[2018-04-08] MEDS: Aspirin 81 MG TAB.CHEW PO SCH (07:44)
[2018-04-08 08:30] LABS: Basophils % 0.7 %; Eosinophils # 0.2 K/mcL (0.0-0.6); Eosinophils % 2.6 %; Hematocrit 29.1 % (35.3-44.9); Immature Granulocytes % 1.4 % (0-4); Lymphocytes # 1.1 K/mcL (0.6-4.6); Lymphocytes % 18.3 %; Mean Platelet Volume 9.4 fL (9.4-12.4); Monocytes # 0.5 K/mcL (0.0-1.3); Monocytes % 8.8 %; Platelet Count 184 K/mcL (140-400); Red Cell Distribution Width 20.2 % (11.5-14.5); Segmented Neutrophils % 68.2 %
[2018-04-08 08:51] LABS: BUN/Creatinine Ratio 17 (6-26); Blood Urea Nitrogen 15 mg/dL (8-23); Calcium 8.9 mg/dL (8.6-10.3); Carbon Dioxide 22 mEq/L (23-29); Chloride 109 mEq/L (98-107); Glucose 98 mg/dL (70-105); Osmolality,Calculated 289 (280-300); Sodium 139 mEq/L (136-145); eGFR For African Americans > 60 (> 60); eGFR For Non-African Americans > 60 (> 60)
[2018-04-08 09:11] LABS: Hemoglobin 9.6 g/dL (11.5-15.4)
--- NOTE | 2018-04-08 10:29 | Internal Med Progress Note ---
Date of Encounter: 04/08/18 Time of Encounter: 10:30 - Assessment and plan (1) Anemia Current Visit: Yes Status: Acute Assessment and plan: Acute on chronic anemia r/o GI bleed.Hgb was 6.6 at outside hospital and 8.8 on admission. Hgb decreased to 7 yesterday and is 9.6 this AM after 1 unit PRBC. Continue to monitor CBC and transfuse PRBC as needed. Iron 159. Plan for EGD and colonoscopy tomorrow . Continue BID protonix Qualifiers: Anemia type: unspecified type Qualified Code(s): D64.9 - Anemia, unspecified (2) Recurrent falls while walking Current Visit: Yes Status: Acute Assessment and plan: Likely due to weakness from anemia PTOT eval noted, no therapy needed (3) DVT prophylaxis Current Visit: Yes Status: Acute Assessment and plan: subQ hep (4) Hypertension Current Visit: Yes Status: Chronic Assessment and plan: Continue home meds Qualifiers: Hypertension type: essential hypertension Qualified Code(s): I10 - Essential (primary) hypertension (5) CHF (congestive heart failure) Current Visit: Yes Status: Chronic Assessment and plan: Stable. continue BB, Hold Plavix, Resume lasix and lisinopril at low dose Qualifiers: Heart failure type: unspecified Heart failure chronicity: chronic Qualified Code(s): I50.9 - Heart failure, unspecified (6) History of chronic kidney disease Current Visit: Yes Status: Acute Assessment and plan: Unknown stage or baseline GFR. Continue to monitor kidney function with AM labs. Avoid nephrotoxins. (7) History of coronary artery stent placement Current Visit: Yes Status: Chronic Assessment and plan: Anemia has resolved patient is unsure of the duration of stent cardio consulted She has no GIB FOBT negative DisContinue plavix (8) Acute kidney failure Current Visit: Yes Status: Acute Assessment and plan: Likely related to hypoperfusion from acute anemia. Acute on chronic kidney disease Renal function is back to baseline Qualifiers: Acute renal failure type: unspecified Qualified Code(s): N17.9 - Acute kidney failure, unspecified (9) Hypokalemia Current Visit: Yes Status: Acute Assessment and plan: Resolved - Time Spent With Patient Total time spent is greater than 50% in coordination of care (as documented) at patient's floor/unit and/or counseling patient: - Subjective Interval history: No acute events overnight. Transfused one unit PRBC - Constitutional Vitals: Temp Pulse Resp BP Pulse Ox 98.4 F 71 18 121/84 99 04/08/18 07:04 04/08/18 07:04 04/08/18 07:04 04/08/18 07:04 04/08/18 07:54 General appearance: Present: A&O X 3, pleasant, no acute distress, answers questions appropriately Exam: Ecchymoses noted all over - Head Head exam: Present: atraumatic, normocephalic - Eye Eye exam: Present: PERRL, conjuntiva pink, sclera anicteric Pupils: Present: PERRL - Neck Neck exam general surgery: Present: supple, trachea midline. Absent: lymphadenopathy - Respiratory Respiratory exam: Present: CTAB. Absent: accessory muscle use, rales, rhonchi, wheezes - Cardiovascular Cardiovascular exam: Present: RRR, +S1, +S2. Absent: diastolic murmur, gallop, rubs, systolic murmur - GI/Abdominal GI/Abdominal exam: Present: normal bowel sounds, soft, no peritoneal signs. Absent: distended, tenderness - Extremities Exam Extremities exam: Present: warm, radial pulses palpable and symmetrical. Absent : calf tenderness, cyanotic, pedal edema - Neurological Exam Neurological exam: Present: CN II-XII intact, oriented X3, no focal deficits. Absent: pronater drift, facial droop, speech deficit - Skin Skin exam: Present: dry, intact Internal Medicine: Result - Labs CBC & Chem 7: 04/08/18 07:53 04/08/18 07:53 Labs: Short CBC 04/08/18 Range/Units 07:53 WBC 5.8 (4.3-11.1) K/mcL Hgb 9.6 L D (11.5-15.4) g/dL Hct 29.1 L (35.3-44.9) % Plt Count 184 (140-400) K/mcL Neutrophils # 4.0 (1.6-8.9) K/mcL BMP 04/08/18 07:53 Sodium 139 Potassium 4.0 Chloride 109 H Carbon Dioxide 22 L BUN 15 Creatinine 0.89 Glucose 98 Calcium 8.9 - ABG Interpretation ABG results: PT/INR, D-dimer PT 10.3 Seconds (9.4-12.1) 04/05/18 04:31 Consult Discharge Plan - Plan Referrals: Ade Krueger [Primary Care Provider] -
--- NOTE | 2018-04-08 12:47 | Gastroenterology Consult Note ---
<Gary Cornell - Last Filed: 04/08/18 12:44> Date of Encounter: 04/08/18 Time of Encounter: 11:00 - Assessment and plan (1) Anemia Current Visit: Yes Status: Acute Assessment and plan: Hgb was 6.6 at outside hospital and 8.8 on admission. Hgb decreased to 7 yesterday and is 9.6 this AM after 1 unit PRBC. Continue to monitor CBC and transfuse PRBC as needed. Iron 159. Plan for EGD and colonoscopy tomorrow. Clear liquid diet today, no red or purple. NPO at midnight. If unable tolerate NuLytely please use MiraLAX prep. If not clear by 6 AM, give 2 tap water enemas. Qualifiers: Anemia type: unspecified type Qualified Code(s): D64.9 - Anemia, unspecified (2) Recurrent falls while walking Current Visit: Yes Status: Acute - Time Spent With Patient Total time spent is greater than 50% in coordination of care (as documented) at patient's floor/unit and/or counseling patient: GI History of Present Illness - Data of Consult Patient: new to practice Consult date: 04/08/18 Requesting Physician: George Hein MD - Consult Narrative Reason for consult: Anemia History of present illness: Ms. Doe is a 72 year old female with PMHx of HTN, CHF, chronic anemia, Afb with pacer/defibrillator. on on Plavix was transferred from [facility] for anemia. She denies fever, chills, chest pain, shortness of breath, nausea, vomiting, diarrhea, melena, or hematochezia. Fecal occult blood test was nesgative. Hgb was 6.6 at outside hospital and 8.8 on admission. Hgb decreased to 7 yesterday and is 9.6 this AM after 1 unit PRBC. She reports having a colonoscopy at [facility] in 2005 that was normal. We have been consulted to evaluate her anemia. Procedures: Colonoscopy 2006 at [facility]: Normal per pt report. NSAIDs: None Anticoagulation: None Past Med Surg Social Fam HX - Past Medical History Medical history: cardiomyopathy, CHF, coronary artery disease, hypertension Psychiatric history: anxiety, depression - Past Surgical History Surgical History: breast surgery, pacemaker/AICD Additional surgical history: breast cancer with breast surgery (2004) - Social History Smoking Status: Never smoker Smokeless Tobacco Status: No Alcohol use: rarely Drug use: none - Gastrointestinal Gastrointestinal: Present: as per HPI - Constitutional Constitutional: as per HPI - EENT Eyes: as per HPI Ears: Present: as per HPI Nose, mouth and throat: Present: as per HPI - Cardiovascular Cardiovascular ROS: Present: as per HPI - Respiratory Respiratory IM: Present: as per HPI - Genitourinary Genitourinary: Absent: change in color, Urinary frequency - Neurological ROS Neurological GI: Present: as per HPI - Hematologic/Lymphatic Hematologic/Lymphatic pediatric: Present: as per HPI - Musculoskeletal Musculoskeletal ROS GI: Present: as per HPI - Integumentary Integumentary GI: Present: as per HPI - Psychiatric ROS Psychiatric GI: Present: as per HPI - Endocrine Endocrine IM: Present: as per HPI - Constitutional Vitals: Temp Pulse Resp BP Pulse Ox 97.7 F 71 17 114/58 99 04/08/18 11:00 04/08/18 11:00 04/08/18 11:00 04/08/18 11:00 04/08/18 11:00 General appearance: Present: cooperative, A&O X 3, no acute distress, answers questions appropriately - Head Head exam: Present: atraumatic, normocephalic - Eye Eye exam: Present: normal appearance, sclera anicteric - ENT ENT exam: Present: mucous membranes dry - Neck Neck exam general surgery: Present: normal inspection, trachea midline - Respiratory Respiratory exam: Present: CTAB. Absent: rales, rhonchi, wheezes - Cardiovascular Cardiovascular exam: Present: RRR, +S1, +S2 - GI/Abdominal GI/Abdominal exam: Present: soft, no peritoneal signs. Absent: distended, firm , guarding, tenderness - Rectal Rectal exam: Present: deferred - Extremities Exam Extremities exam: Present: warm - Neurological Exam Neurological exam: Present: no focal deficits - Psychiatric Psychiatric exam: Present: normal affect, normal mood - Skin Skin exam: Present: dry, intact, normal color, warm Results - Labs CBC & Chem 7: 04/08/18 07:53 04/08/18 07:53 Labs: Last Result Calcium 8.9 mg/dL (8.6-10.3) 04/08/18 07:53 Iron 159 mcg/dL (50-170) 04/05/18 04:31 % Saturation 59 % (15-50) H 04/05/18 04:31 Transferrin 191 mg/dL (203-362) L 04/05/18 04:31 Entire Visit Hgb 9.6 g/dL (11.5-15.4) L D 04/08/18 07:53 Hct 29.1 % (35.3-44.9) L 04/08/18 07:53 PT 10.3 Seconds (9.4-12.1) 04/05/18 04:31 - ABG ABG results: PT/INR, D-dimer PT 10.3 Seconds (9.4-12.1) 04/05/18 04:31 Consult Discharge Plan - Plan Referrals: Ade Krueger [Primary Care Provider] - <Gildardo Perez - Last Filed: 04/08/18 17:36> Date of Encounter: 04/08/18 Time of Encounter: 13:30 - Time Spent With Patient Total time spent is greater than 50% in coordination of care (as documented) at patient's floor/unit and/or counseling patient: GI History of Present Illness - Data of Consult Requesting Physician: George Hein MD - Consult Narrative History of present illness: Ms. Doe is a 72 year old female - Constitutional Vitals: Temp Pulse Resp BP Pulse Ox 98.8 F 71 18 113/68 100 04/08/18 15:03 04/08/18 15:03 04/08/18 15:03 04/08/18 15:03 04/08/18 15:03 Results - Labs CBC & Chem 7: 04/08/18 07:53 04/08/18 07:53 Labs: Last Result Calcium 8.9 mg/dL (8.6-10.3) 04/08/18 07:53 Iron 159 mcg/dL (50-170) 04/05/18 04:31 % Saturation 59 % (15-50) H 04/05/18 04:31 Transferrin 191 mg/dL (203-362) L 04/05/18 04:31 Stool Occult Blood Negative (Negative) 04/08/18 10:50 Entire Visit Hgb 9.6 g/dL (11.5-15.4) L D 04/08/18 07:53 Hct 29.1 % (35.3-44.9) L 04/08/18 07:53 PT 10.3 Seconds (9.4-12.1) 04/05/18 04:31 - ABG ABG results: PT/INR, D-dimer PT 10.3 Seconds (9.4-12.1) 04/05/18 04:31 - Attending Attestation I have personally performed a face to face evaluation on this patient. I have reviewed and agree with the care plan. History and Exam by me shows: pt seen denies any active GI symptoms. No overt GI bleeding. Assessment : patient with anemia. Recommendation EGD and colonoscopy to rule out GI causes for anemia
[2018-04-08] MEDS: Pantoprazole 40 MG VIAL IVP SCH (16:30)
[2018-04-08] MEDS ORDERED: SODIUM CHLORIDE/NAHCO3/KCL/PEG 4,000 ML SOLN.RECON PO ONE (17:00)
[2018-04-09] MEDS ORDERED: Ondansetron 4 MG/2 ML VIAL IVP PRN (03:42)
[2018-04-09] MEDS: Pantoprazole 40 MG VIAL IVP SCH ×2 (05:08→16:40)
[2018-04-09 06:50] LABS: Basophils # 0.1 K/mcL (0.0-0.2); Basophils % 0.5 %; Eosinophils # 0.2 K/mcL (0.0-0.6); Eosinophils % 2.2 %; Hematocrit 30.5 % (35.3-44.9); Hemoglobin 10.2 g/dL (11.5-15.4); Immature Granulocytes % 1.7 % (0-4); Lymphocytes # 1.3 K/mcL (0.6-4.6); Lymphocytes % 13.8 %; Mean Corpuscular HGB Conc 33.4 g/dL (31.6-35.5); Mean Corpuscular Hemoglobin 32.6 pg (28.0-33.3); Mean Corpuscular Volume 97.4 fL (83.0-100.0); Mean Platelet Volume 9.1 fL (9.4-12.4); Monocytes # 0.8 K/mcL (0.0-1.3); Neutrophils # 6.9 K/mcL (1.6-8.9); Platelet Count 211 K/mcL (140-400); Red Blood Count 3.13 M/mcL (3.82-4.97); Red Cell Distribution Width 19.9 % (11.5-14.5); Segmented Neutrophils % 73.8 %
[2018-04-09 07:09] LABS: BUN/Creatinine Ratio 16 (6-26); Blood Urea Nitrogen 13 mg/dL (8-23); Calcium 9.2 mg/dL (8.6-10.3); Carbon Dioxide 24 mEq/L (23-29); Chloride 107 mEq/L (98-107); Glucose 116 mg/dL (70-105); Osmolality,Calculated 289 (280-300); Potassium 3.9 mEq/L (3.5-5.1); Sodium 139 mEq/L (136-145); eGFR For African Americans > 60 (> 60); eGFR For Non-African Americans > 60 (> 60)
[2018-04-09] MEDS: diazePAM 5 MG TABLET PO SCH (08:23)
[2018-04-09] MEDS: Aspirin 81 MG TAB.CHEW PO SCH (08:24)
[2018-04-09] MEDS: Folic Acid 1 MG TABLET PO SCH (08:24)
[2018-04-09] MEDS: Fluticasone Propionate Nasal 50 MCG/SPRAY BOTTLE NS SCH (08:24)
[2018-04-09] MEDS: Acetaminophen 325 MG TABLET PO PRN (08:29)
--- NOTE | 2018-04-09 09:56 | Internal Med Progress Note ---
Date of Encounter: 04/09/18 Time of Encounter: 09:50 - Assessment and plan (1) Anemia Current Visit: Yes Status: Acute Assessment and plan: Acute on chronic anemia r/o GI bleed.Hgb was 6.6 at outside hospital and 8.8 on admission. Hgb decreased to 7 yesterday and is 9.6 this AM after 1 unit PRBC. Continue to monitor CBC and transfuse PRBC as needed. Iron 159. Plan for EGD and colonoscopy today . Continue BID protonix Qualifiers: Anemia type: unspecified type Qualified Code(s): D64.9 - Anemia, unspecified (2) Recurrent falls while walking Current Visit: Yes Status: Acute Assessment and plan: Likely due to weakness from anemia PTOT eval noted, no therapy needed (3) DVT prophylaxis Current Visit: Yes Status: Acute Assessment and plan: scds (4) Hypertension Current Visit: Yes Status: Chronic Assessment and plan: Continue home meds Qualifiers: Hypertension type: essential hypertension Qualified Code(s): I10 - Essential (primary) hypertension (5) CHF (congestive heart failure) Current Visit: Yes Status: Chronic Assessment and plan: Stable. continue BB, Hold Plavix, Resume lasix and lisinopril at low dose Qualifiers: Heart failure type: unspecified Heart failure chronicity: chronic Qualified Code(s): I50.9 - Heart failure, unspecified (6) History of chronic kidney disease Current Visit: Yes Status: Acute Assessment and plan: Unknown stage or baseline GFR. Continue to monitor kidney function with AM labs. Avoid nephrotoxins. Code(s): Z87.448 - Personal history of other diseases of urinary system (7) History of coronary artery stent placement Current Visit: Yes Status: Chronic Assessment and plan: Continue aspirin per cardiology recs (8) Acute kidney failure Current Visit: Yes Status: Acute Assessment and plan: Likely related to hypoperfusion from acute anemia. Acute on chronic kidney disease Renal function is back to baseline Qualifiers: Acute renal failure type: unspecified Qualified Code(s): N17.9 - Acute kidney failure, unspecified (9) Hypokalemia Current Visit: Yes Status: Acute Assessment and plan: Resolved - Time Spent With Patient Total time spent is greater than 50% in coordination of care (as documented) at patient's floor/unit and/or counseling patient: - Subjective Interval history: No acute events overnight. Transfused one unit PRBC - Constitutional Vitals: Temp Pulse Resp BP Pulse Ox 98.4 F 90 18 128/85 97 04/09/18 07:58 04/09/18 07:58 04/09/18 07:58 04/09/18 07:58 04/09/18 08:30 General appearance: Present: A&O X 3, pleasant, no acute distress, answers questions appropriately - Head Head exam: Present: atraumatic, normocephalic - Eye Eye exam: Present: PERRL, conjuntiva pink, sclera anicteric Pupils: Present: PERRL - Neck Neck exam general surgery: Present: supple, trachea midline. Absent: lymphadenopathy - Respiratory Respiratory exam: Present: CTAB. Absent: accessory muscle use, rales, rhonchi, wheezes - Cardiovascular Cardiovascular exam: Present: RRR, +S1, +S2. Absent: diastolic murmur, gallop, rubs, systolic murmur - GI/Abdominal GI/Abdominal exam: Present: normal bowel sounds, soft, no peritoneal signs. Absent: distended, tenderness - Extremities Exam Extremities exam: Present: warm, radial pulses palpable and symmetrical. Absent : calf tenderness, cyanotic, pedal edema - Neurological Exam Neurological exam: Present: CN II-XII intact, oriented X3, no focal deficits. Absent: pronater drift, facial droop, speech deficit - Skin Skin exam: Present: dry, intact Internal Medicine: Result - Labs CBC & Chem 7: 04/09/18 06:32 04/09/18 06:32 Labs: Short CBC 04/09/18 Range/Units 06:32 WBC 9.4 D (4.3-11.1) K/mcL Hgb 10.2 L (11.5-15.4) g/dL Hct 30.5 L (35.3-44.9) % Plt Count 211 (140-400) K/mcL Neutrophils # 6.9 (1.6-8.9) K/mcL BMP 04/09/18 06:32 Sodium 139 Potassium 3.9 Chloride 107 Carbon Dioxide 24 BUN 13 Creatinine 0.80 Glucose 116 H Calcium 9.2 - ABG Interpretation ABG results: PT/INR, D-dimer PT 10.3 Seconds (9.4-12.1) 06/02/18 04:31 Consult Discharge Plan - Plan Referrals: Ade Krueger [Primary Care Provider] -
--- NOTE | 2018-04-09 12:47 | Anesthesia Evaluation PreOp ---
Date of Encounter: 04/09/18 Time of Encounter: 12:43 - Past History Planned Operation: EGD/Colonoscopy Cardiac History: CHF, HTN, Arrhythmia (AF), Cardiac Stent, Pacemaker/ICD (AICD Interogated today, non dependent, no discharges), Other (Anemia - multiple transfusions, Ischemic Cardiomyopathy) Pulmonary History: Denies Any Significant HX DRAFTER PLUMBING History: Denies Any Significant HX Other Medical History: Other (last transfused 04/07/2018) Anesthesia History: No Prior Anesthetic Complications, Past Anesthesia ( bilateral "breast surgery", bilateral tubal ligation) : No Alcohol Use: rarely Drug use: none Medications and Allergies Carvedilol [Coreg] 6.25 mg PO BID 04/05/18 [History] Ergocalciferol (VITAMIN D2) [Vitamin D2] 50,000 unit PO QWEEK 04/05/18 [History] Fluticasone Propionate Nasal [Flonase] 1 - 2 spr NS DAILY 04/05/18 [History] Folic Acid 1 mg PO DAILY 04/05/18 [History] Furosemide [Lasix] 40 mg PO DAILY 04/05/18 [History] Lisinopril [Zestril] 10 mg PO DAILY 04/05/18 [History] Ondansetron [Zofran] 8 mg PO Q8HR PRN 04/05/18 [History] Polyethylene Glycol 3350 [MiraLAX] 17 gm PO DAILY 04/05/18 [History] Sertraline [Zoloft] 100 mg PO DAILY 04/05/18 [History] Tramadol HCl [Ultram] 50 mg PO DAILY PRN 04/05/18 [History] diazePAM [Valium] 10 mg PO DAILY 04/05/18 [History] 3 Allergy/AdvReac Type Severity Reaction Status Date / Time codeine Allergy Unknown Verified 04/05/18 10:12 - Meds/Allergy Pre-op Review Medications Reviewed: Yes Allergies Reviewed: Yes Beta Blockers on Current Med List: No Anesthesia Results - Labs 04/09/18 06:32 04/09/18 06:32 Anesthesia Exam Vital Signs/O2 Sat, Most Current Temp Pulse Resp BP Pulse Ox 98.5 F 76 14 122/79 99 04/09/18 10:36 04/09/18 10:36 04/09/18 10:36 04/09/18 10:36 04/09/18 10:36 NPO (# of Hours): > 8 hrs Pain Scale: 0 Pain Scale Used: Numeric (1 - 10) - HEENT Pupil (Motor): Pupils equal, EOMI Mallampati: III Teeth: Normal Oral Opening: Greater than 3 - DRAFTER PLUMBING LOC: Oriented DRAFTER PLUMBING Motor: Normal RUE, Normal LUE, Normal RLE, Normal LLE, Normal Face DRAFTER PLUMBING Sensory: Normal: RUE, LUE, RLE, LLE, Face - Cardiac Rhythm: Regular Murmur: None JVD: No Carotid Bruit: No - Pulmonary Breath Sounds: bilateral Clear Respiratory Effort: Symmetrical Anesthesia Assess/Plan ASA Score: 3 Modified Farnham Scale for Level of Consciousness: Cooperative, oriented, and tranquil Anesthetic Plan: MAC Autologous Blood: Yes Monitoring Plan: Standard Monitors Recovery Plan: Other
[2018-04-09] MEDS ORDERED: *HR* Propofol 200 MG/20 ML VIAL IVP ONE ×2 (12:59)
[2018-04-09] MEDS ORDERED: *HR* Metoprolol 5 MG/5 ML VIAL IVP ONE (13:15)
[2018-04-10] MEDS: Pantoprazole 40 MG VIAL IVP SCH (05:39)
[2018-04-10 05:51] LABS: Basophils % 0.6 %; Eosinophils # 0.2 K/mcL (0.0-0.6); Eosinophils % 3.3 %; Hematocrit 29.4 % (35.3-44.9); Hemoglobin 9.4 g/dL (11.5-15.4); Immature Granulocytes % 1.3 % (0-4); Lymphocytes # 1.2 K/mcL (0.6-4.6); Lymphocytes % 17.7 %; Mean Platelet Volume 9.3 fL (9.4-12.4); Monocytes # 0.8 K/mcL (0.0-1.3); Monocytes % 11.3 %; Neutrophils # 4.4 K/mcL (1.6-8.9); Nucleated Red Blood Cells 0.3 /100 WBC (0); Platelet Count 182 K/mcL (140-400); Red Blood Count 2.94 M/mcL (3.82-4.97); Red Cell Distribution Width 19.3 % (11.5-14.5); Segmented Neutrophils % 65.8 %
[2018-04-10 06:02] LABS: BUN/Creatinine Ratio 14 (6-26); Blood Urea Nitrogen 11 mg/dL (8-23); Calcium 8.7 mg/dL (8.6-10.3); Carbon Dioxide 25 mEq/L (23-29); Chloride 109 mEq/L (98-107); Glucose 99 mg/dL (70-105); Osmolality,Calculated 295 (280-300); Potassium 3.8 mEq/L (3.5-5.1); Sodium 143 mEq/L (136-145); eGFR For African Americans > 60 (> 60); eGFR For Non-African Americans > 60 (> 60)
[2018-04-10 08:27] VITALS: BP 133/90
--- NOTE | 2018-04-10 08:29 | Internal Med Progress Note ---
Date of Encounter: 04/10/18 Time of Encounter: 08:30 - Assessment and plan (1) Anemia Status: Acute Assessment and plan: Acute on chronic anemia r/o GI bleed.Hgb was 6.6 at outside hospital and 8.8 on admission. Hgb decreased to 7 yesterday and is 9.6 this AM after 1 unit PRBC. Continue to monitor CBC and transfuse PRBC as needed. Iron 159. s/p EGD and colonoscopy today . Continue BID protonix Qualifiers: Anemia type: unspecified type Qualified Code(s): D64.9 - Anemia, unspecified (2) Recurrent falls while walking Status: Acute Assessment and plan: Likely due to weakness from anemia PTOT eval noted, no therapy needed (3) DVT prophylaxis Status: Acute Assessment and plan: scds (4) Hypertension Status: Chronic Assessment and plan: Continue home meds Qualifiers: Hypertension type: essential hypertension Qualified Code(s): I10 - Essential (primary) hypertension (5) CHF (congestive heart failure) Status: Chronic Assessment and plan: Stable. continue BB, Hold Plavix, Resume lasix and lisinopril at low dose Qualifiers: Heart failure type: unspecified Heart failure chronicity: chronic Qualified Code(s): I50.9 - Heart failure, unspecified (6) History of chronic kidney disease Status: Acute Assessment and plan: Unknown stage or baseline GFR. Continue to monitor kidney function with AM labs. Avoid nephrotoxins. Code(s): Z87.448 - Personal history of other diseases of urinary system (7) History of coronary artery stent placement Status: Chronic Assessment and plan: Continue aspirin per cardiology recs (8) Acute kidney failure Status: Acute Assessment and plan: Likely related to hypoperfusion from acute anemia. Acute on chronic kidney disease Renal function is back to baseline Qualifiers: Acute renal failure type: unspecified Qualified Code(s): N17.9 - Acute kidney failure, unspecified (9) Hypokalemia Status: Acute Assessment and plan: Resolved - Time Spent With Patient Total time spent is greater than 50% in coordination of care (as documented) at patient's floor/unit and/or counseling patient: - Subjective Interval history: No acute events overnight - Constitutional Vitals: Temp Pulse Resp BP Pulse Ox 97.5 F L 111 18 133/90 99 04/10/18 08:24 04/10/18 08:24 04/10/18 08:24 04/10/18 08:24 04/10/18 08:24 General appearance: Present: A&O X 3, pleasant, no acute distress, answers questions appropriately - Head Head exam: Present: atraumatic, normocephalic - Eye Eye exam: Present: PERRL, conjuntiva pink, sclera anicteric Pupils: Present: PERRL - Neck Neck exam general surgery: Present: supple, trachea midline. Absent: lymphadenopathy - Respiratory Respiratory exam: Present: CTAB. Absent: accessory muscle use, rales, rhonchi, wheezes - Cardiovascular Cardiovascular exam: Present: RRR, +S1, +S2. Absent: diastolic murmur, gallop, rubs, systolic murmur - GI/Abdominal GI/Abdominal exam: Present: normal bowel sounds, soft, no peritoneal signs. Absent: distended, tenderness - Extremities Exam Extremities exam: Present: warm, radial pulses palpable and symmetrical. Absent : calf tenderness, cyanotic, pedal edema - Neurological Exam Neurological exam: Present: CN II-XII intact, oriented X3, no focal deficits. Absent: pronater drift, facial droop, speech deficit - Skin Skin exam: Present: dry, intact Internal Medicine: Result - Labs CBC & Chem 7: 04/10/18 04:57 04/10/18 04:57 Labs: Short CBC 04/10/18 Range/Units 04:57 WBC 6.7 (4.3-11.1) K/mcL Hgb 9.4 L (11.5-15.4) g/dL Hct 29.4 L (35.3-44.9) % Plt Count 182 (140-400) K/mcL Neutrophils # 4.4 (1.6-8.9) K/mcL BMP 04/10/18 04:57 Sodium 143 Potassium 3.8 Chloride 109 H Carbon Dioxide 25 BUN 11 Creatinine 0.77 Glucose 99 Calcium 8.7 - ABG Interpretation ABG results: PT/INR, D-dimer PT 10.3 Seconds (9.4-12.1) 04/05/18 04:31 Consult Discharge Plan - Plan Instructions: Aspirin (By mouth), Pantoprazole (By mouth) Referrals: Ade Krueger [Primary Care Provider] - 04/15/18 8:00 am (Please follow up as schedule...) Prescriptions: Aspirin 81 mg PO DAILY #60 tab.chew Pantoprazole Sodium [Protonix] 40 mg PO BID 30 Days #60 tablet.
--- NOTE | 2018-04-10 08:46 | Discharge Summary ---
Orders not resulted at time of discharge: Pending orders 04/09/18 14:41 Surgical Pathology [PTH] Routine 04/11/18 04:00 Basic Metabolic Panel AM 0400 CBC [Complete Blood Count] [HEME] AM 0400 04/12/18 04:00 Basic Metabolic Panel AM 0400 CBC [Complete Blood Count] [HEME] AM 0400 04/13/18 04:00 Basic Metabolic Panel AM 0400 CBC [Complete Blood Count] [HEME] AM 0400 04/14/18 04:00 Basic Metabolic Panel AM 0400 CBC [Complete Blood Count] [HEME] AM 0400 Date of Encounter: 04/10/18 Time of Encounter: 08:40 - Discharge Diagnosis (1) Anemia Priority: Primary Status: Acute Assessment and Plan: 72 year old female past medical history hypertension, CHF, A. fib with pacer/ defibrillator and currently on Plavix, bilateral "breast surgery", bilateral tubal ligation, presents as transferred from [facility] for anemia requiring multiple transfusions, falls. Patient was getting up from her bed to go to the kitchen when she fell forward . She was assessed with anemia r/o GI bleed as she was taking aspirin and plavix. She was seen by cardiology who recommended discontinuing her plavix as she a had her PCI over a year prior. She was transfused and seen by Gi and had an EGD and colonscopy done. Colonscopy showed diverticulosis and one non bleeding polyp. EGD showed diffuse esophagitis , chronic esophagitis and gastritis which were biopsied with no bleeding. She was discharged home on protonix BID and will follow up with GI as an outpatient Qualifiers: Anemia type: unspecified type Qualified Code(s): D64.9 - Anemia, unspecified (2) Recurrent falls while walking Priority: Secondary Status: Acute (3) DVT prophylaxis Priority: Secondary Status: Acute (4) Hypertension Priority: Secondary Status: Chronic Qualifiers: Hypertension type: essential hypertension Qualified Code(s): I10 - Essential (primary) hypertension (5) CHF (congestive heart failure) Priority: Secondary Status: Chronic Qualifiers: Heart failure type: unspecified Heart failure chronicity: chronic Qualified Code(s): I50.9 - Heart failure, unspecified (6) History of chronic kidney disease Priority: Secondary Status: Acute Code(s): Z87.448 - Personal history of other diseases of urinary system (7) History of coronary artery stent placement Priority: Secondary Status: Chronic (8) Acute kidney failure Priority: Secondary Status: Acute Qualifiers: Acute renal failure type: unspecified Qualified Code(s): N17.9 - Acute kidney failure, unspecified (9) Hypokalemia Priority: Secondary Status: Acute Hospital course: Ms. Doe is a 72 year old female - Time Spent with Patient Total time spent providing and/or coordinating discharge services: - Discharge Medications Prescriptions: Aspirin 81 mg PO DAILY #60 tab.chew Pantoprazole Sodium [Protonix] 40 mg PO BID 30 Days #60 tablet. Home Medications: Carvedilol [Coreg] 6.25 mg PO BID 04/05/18 [History] Ergocalciferol (VITAMIN D2) [Vitamin D2] 50,000 unit PO QWEEK 04/05/18 [History] Fluticasone Propionate Nasal [Flonase] 1 - 2 spr NS DAILY 04/05/18 [History] Folic Acid 1 mg PO DAILY 04/05/18 [History] Furosemide [Lasix] 40 mg PO DAILY 04/05/18 [History] Lisinopril [Zestril] 10 mg PO DAILY 04/05/18 [History] Ondansetron [Zofran] 8 mg PO Q8HR PRN 04/05/18 [History] Polyethylene Glycol 3350 [MiraLAX] 17 gm PO DAILY 04/05/18 [History] Sertraline [Zoloft] 100 mg PO DAILY 04/05/18 [History] Tramadol HCl [Ultram] 50 mg PO DAILY PRN 04/05/18 [History] diazePAM [Valium] 10 mg PO DAILY 04/05/18 [History] Aspirin 81 mg PO DAILY #60 tab.chew 04/10/18 [Rx] Pantoprazole Sodium [Protonix] 40 mg PO BID 30 Days #60 tablet. 04/10/18 [Rx] Allergies/Adverse Reactions: 3 Allergy/AdvReac Type Severity Reaction Status Date / Time codeine Allergy Unknown Verified 04/05/18 10:12 Date of admission: 04/04/18 18:55 Primary care physician: Ade Krueger Consults: 04/05/18 00:03 Consult to Physical Therapy [CONS] Routine Comment: Evaluate, develop and implement POC Reason for Consult: weakness, high risk falls Does patient have active BEDREST order?: Yes Is patient medically & hemodynamically stable?: Yes 04/07/18 07:58 Consult to Cardiology [CONS] Routine Comment: Consulting Provider: Cardiology Annabella Reason for Consult: Patient on plavix for prior stents, anemia requiring transfusions due to use of Plavix. Call Completed: No - Constitutional Vitals: Temp Pulse Resp BP Pulse Ox 97.5 F L 111 18 133/90 99 04/10/18 08:24 04/10/18 08:24 04/10/18 08:24 04/10/18 08:24 04/10/18 08:24 General appearance: Present: A&O X 3, pleasant, no acute distress, answers questions appropriately - Head Head exam: Present: atraumatic, normocephalic - Eye Eye exam: Present: PERRL, conjuntiva pink, sclera anicteric Pupils: Present: PERRL - Neck Neck exam general surgery: Present: supple, trachea midline. Absent: lymphadenopathy - Respiratory Respiratory exam: Present: CTAB. Absent: accessory muscle use, rales, rhonchi, wheezes - Cardiovascular Cardiovascular exam: Present: RRR, +S1, +S2. Absent: diastolic murmur, gallop, rubs, systolic murmur - GI/Abdominal GI/Abdominal exam: Present: normal bowel sounds, soft, no peritoneal signs. Absent: distended, tenderness - Extremities Exam Extremities exam: Present: warm, radial pulses palpable and symmetrical. Absent : calf tenderness, cyanotic, pedal edema - Neurological Exam Neurological exam: Present: CN II-XII intact, oriented X3, no focal deficits. Absent: pronater drift, facial droop, speech deficit - Skin Skin exam: Present: dry, intact - Patient Status Disposition: Home Health Service Condition: Good - Discharge Instructions Instructions: Aspirin (By mouth), Pantoprazole (By mouth) Follow Up With: Ade Krueger [Primary Care Provider] - 04/15/18 8:00 am (Please follow up as schedule...)
[2018-04-10] MEDS: Aspirin 81 MG TAB.CHEW PO SCH (08:50)
[2018-04-10] MEDS: Folic Acid 1 MG TABLET PO SCH (08:50)
[2018-04-10] MEDS: diazePAM 5 MG TABLET PO SCH (08:51)
--- NOTE | 2018-04-10 10:24 | Physician Discharge Referral ---
Home Health/Hosp Referral Info Transfer to: Home Health - Diagnosis (1) Anemia Priority: Primary Status: Acute (2) Recurrent falls while walking Status: Acute (3) DVT prophylaxis Status: Acute (4) Hypertension Status: Chronic (5) CHF (congestive heart failure) Status: Chronic (6) History of chronic kidney disease Status: Acute (7) History of coronary artery stent placement Status: Chronic (8) Acute kidney failure Status: Acute (9) Hypokalemia Status: Acute - Respiratory Orders Smoking Cessation: Smoking cessation has been advised. For more information, call the [place] Tobacco Quit Line at 5-769-AVXA-NOW. - Diet/Nutrition Diet/Nutrition Orders: Cardiac - Activity Activity Orders: Ambulate - Services Needed Following services are medically necessary services: Nursing, Home Health Aide, Physical Therapy - Transfer Medications Prescriptions: Aspirin 81 mg PO DAILY #60 tab.chew Pantoprazole Sodium [Protonix] 40 mg PO BID 30 Days #60 tablet. [place] Medications: Carvedilol [Coreg] 6.25 mg PO BID 04/05/18 [History] Ergocalciferol (VITAMIN D2) [Vitamin D2] 50,000 unit PO QWEEK 04/05/18 [History] Fluticasone Propionate Nasal [Flonase] 1 - 2 spr NS DAILY 04/05/18 [History] Folic Acid 1 mg PO DAILY 04/05/18 [History] Furosemide [Lasix] 40 mg PO DAILY 04/05/18 [History] Lisinopril [Zestril] 10 mg PO DAILY 04/05/18 [History] Ondansetron [Zofran] 8 mg PO Q8HR PRN 04/05/18 [History] Polyethylene Glycol 3350 [MiraLAX] 17 gm PO DAILY 04/05/18 [History] Sertraline [Zoloft] 100 mg PO DAILY 04/05/18 [History] Tramadol HCl [Ultram] 50 mg PO DAILY PRN 04/05/18 [History] diazePAM [Valium] 10 mg PO DAILY 04/05/18 [History] Aspirin 81 mg PO DAILY #60 tab.chew 04/10/18 [Rx] Pantoprazole Sodium [Protonix] 40 mg PO BID 30 Days #60 tablet. 04/10/18 [Rx] Allergies/Adverse Reactions: 3 Allergy/AdvReac Type Severity Reaction Status Date / Time codeine Allergy Unknown Verified 04/05/18 10:12 Certification: Further, I certify that my clinical findings support that this patient is homebound (i.e. absences from home require considerable and taxing effort and are for medical reasons or faith services or infrequently or short duration when for other reasons) because: Homebound Reason: Patient requires assistance of a person or device to safely leave home Attestation: My signature below is to certify that this patient is under my care and that I, or nurse practitioner, or a physician's medical staff assistant working with me, has a face-to -face encounter with this patient.
[2018-04-10] MEDS: Fluticasone Propionate Nasal 50 MCG/SPRAY BOTTLE NS SCH (12:08)
== END 2018-04-10 12:09 | disposition home health service (06) | DRG 812 ==
LOC: 2ANU
PROVIDERS: ADMIT Family Medicine; ATTEND Family Medicine
PROC: ENDOEBX (2018-04-09 14:00)